=== PATIENT | female | born 1955 | race Caucasian/White ===

== ENCOUNTER → 2025-03-31 | Outpatient (CLI) | payer BC ==
[2025-03-31 20:37] LABS: Basophils # (A) 0.03 X 10*3/uL (0.00-0.10); Basophils % (A) 0.3 %; Eosinophils # (A) 0.06 X 10*3/uL (0.04-0.35); Eosinophils % (A) 0.5 %; HCT 44.4 % (37.2-46.3); HGB 14.3 g/dL (12.0-15.0); Lymphocytes % (A) 22.5 %; MCH 28.5 pg (27.0-32.0); MCHC 32.2 g/dL (32.0-37.0); MCV 88.4 FL (80.0-97.0); Mean Platelet Volume 11.8 FL (9.5-12.2); Monocytes # (A) 0.59 X 10*3/uL (0.20-1.00); Monocytes % (A) 5.1 %; NRBC Per 100 WBC 0 X 10*3/uL (0.00-0.01); Neutrophils # (A) 8.27 X 10*3/uL (1.80-7.70); Neutrophils % (A) 71.3 %; Platelet Count 278 X 10*3/uL (140-440); RBC 5.02 X 10*6/uL (4.10-5.20); RDW 13.2 % (11.5-14.5); WBC 11.58 X 10*3/uL (4.50-10.00)
[2025-03-31 21:44] LABS: ALT 16 U/L (8-44); AST 16 U/L (13-35); Albumin 4.5 g/dL (3.8-4.9); Albumin/Globulin Ratio 1.67 Ratio (1.60-3.17); Alkaline Phosphatase 93 U/L (41-126); BUN/Creat Ratio 33.33 Ratio (12.00-20.00); Calcium 9.9 mg/dL (8.7-10.3); Carbon Dioxide 22.4 mmol/L (21.6-31.8); Chloride 97 mmol/L (96-109); Globulin 2.7 g/dL (1.6-3.3); Glucose 336 mg/dL (70-110); Potassium 4.6 mmol/L (3.5-5.5); Sodium 134 mmol/L (135-145); Total Bilirubin <0.2 mg/dL (0.3-1.2); Total Protein 7.2 g/dL (6.2-8.2)
== END | disposition home or self-care (01) ==
LOC: LABWHC1 10:57
DX: F41.9 Anxiety disorder, unspecified (principal); G47.00 Insomnia, unspecified
CPT/HCPCS: 36415; 80053; 82306; 84443; 85025

== ENCOUNTER → 2025-04-20 | Outpatient (CLI) | payer BC ==
[2025-04-20 23:36] LABS: C-Peptide 4.07 ng/mL (0.81-3.85)
== END | disposition home or self-care (01) ==
LOC: LABWHC1 09:23
DX: R73.01 Impaired fasting glucose (principal)
CPT/HCPCS: 36415; 82150; 83519; 83690; 84681; 86337; 86341